=== PATIENT | female | born 1935 | race Caucasian/White ===

== ENCOUNTER → 2017-09-12 | Outpatient (CLI) | payer MEDICARE ==
--- NOTE | 2017-08-29 07:53 | MH ---
cc: [facility], SHAHEEN SMALL DATE OF ADMISSION 09/12/2017 ADMISSION DIAGNOSIS Cloudy posterior capsule, right eye. HISTORY OF PRESENT ILLNESS This 82-year-old white female is coming through [facility] for the purpose of a YAG laser posterior capsulotomy of the right eye. She is status post cataract surgery with intraocular lens implants in the past as well as YAG laser posterior capsulotomy in the left eye. She was found to have a cloudy posterior capsule in the right eye and was complaining about foggy vision in the right eye and therefore has elected to have a YAG laser posterior capsulotomy in the right eye at this time. PAST MEDICAL HISTORY The patient has a history of trigeminal neuralgia on the left side and she is in an Alzheimer's study. PAST SURGICAL HISTORY 1. Bilateral cataract surgery mentioned above as well as YAG laser posterior capsulotomy on the left eye. 2. Appendectomy. 3. Bladder surgery. 4. Hysterectomy. 5. Oophorectomy. 6. Right and left total knee surgeries. MEDICATIONS Daily medications include: 1. Vitamin B12. 2. Claritin. 3. Carbamazepine. 4. She is in an Alzheimer's study and may be taking some other medication. ALLERGIES She has no known allergies. SOCIAL HISTORY Noncontributory. FAMILY HISTORY Positive for mother and father with cataracts. REVIEW OF SYSTEMS Noncontributory. OCULAR EXAMINATION The patient's best-corrected visual acuity is 20/30 -1/+1 in the right eye and 20/25 -1/+2 in the left. Visual samson are full to confrontation testing. Extraocular muscle exam reveals full versions with exophoria at distance and near. Pupils are 3 mm equal, round, reactive to light without afferent defect. 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 Intraocular pressure is 18 in the right eye and 17 in the left by applanation tonometry. Dilated fundus exam revealed sharp disks with cup-to-disk ratio of 0.3 bilaterally. The macula is clear bilaterally. A posterior vitreous detachment is present bilaterally. 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 IMPRESSION 1. Cloudy posterior capsule, right eye. 2. Pseudophakia, both eyes. 3. Posterior vitreous detachment, both eyes. 4. Basement membrane corneal dystrophy, both eyes. PLAN YAG laser posterior capsulotomy of the right eye through [facility]. MD PROMISE Marroquin/DANIKA /1:02 PM /7:37 AM
[~2017-09-12] MED LIST: BALANCED SALT SOLN OPHT IRRIG 15 ML BTL ONE; CELE200C PO; CLAR10CA3 PO; FLUOROMETHOLONE 0.25% OPHT SUSP 5 ML BTL ONE; OXYC1TAB63 PO; PHENYLEPHRINE HCL 2.5% OPTH SOLN 2 ML BTL ONE; PROPARACAINE HCL 0.5% OPHT SOLN 15 ML BTL ONE; TROPICAMIDE 1% OPHT SOLN 15 ML BTL ONE; VITA1000 PO; VITA100021 SL; XARE10TA PO
--- NOTE | 2017-09-12 12:28 | MP ---
cc: SHAHEEN RIVERA DATE OF SURGERY: September 12, 2017 PREOPERATIVE DIAGNOSIS: Cloudy posterior capsule right eye. POSTOPERATIVE DIAGNOSIS: Cloudy posterior capsule right eye. OPERATION: YAG laser posterior capsulotomy, right eye. SURGEON: Shaheen Rivera MD ANESTHESIA: Topical. COMPLICATIONS: None. INDICATIONS: See history and physical previously dictated. PROCEDURE: The patient arrived at [facility]. Blood pressure was 154/78, pulse 71, respirations 16. A drop of Alphagan P and Mydriacyl were instilled in the right eye. The patient was seated at the YAG laser. A drop of Alcaine was instilled in the right eye and a YAG laser posterior capsulotomy lens was placed on the anterior surface of the right cornea. YAG laser posterior capsulotomy was carried out utilizing 63 exposures of 1.5 millijoules. An adequate opening was seen following the procedure. A drop of Alphagan P was instilled topically. The patient was given a prescription for a topical steroid to be used four times per day and has an appointment for follow up on the first postoperative day in my office. The patient left the [facility] in satisfactory condition. Shaheen Rivera MD BAKERY MANAGER/SSB /11:29 AM /12:51 PM .1
== END ==
LOC: PHSDC 09:57
PROVIDERS: ATTEND Ophthalmology
DX: H26.491 Other secondary cataract, right eye (principal); G50.0 Trigeminal neuralgia; H43.819 Vitreous degeneration, unspecified eye; H18.50 Unspecified hereditary corneal dystrophies; Z96.1 Presence of intraocular lens